=== PATIENT | female | born 1985 | race Caucasian/White ===

== ENCOUNTER → 2017-05-22 | Outpatient (CLI) | payer BC, OTHER ==
[~2017-05-22] MED LIST: (None)20 M1 PO; ALBU8HFA2 INH; ALBU90OI INH; ALBUIS INH; AMOX500 PO; BENZ100A PO; BIRTH CONTROL PILLS; CEPH500 PO; CIPR500 PO; DIPH50 PO; ERYT250 PO; ETHINYL ESTRADIOL; FISH1000 PO; FLUT.05NI; HYDACE5 PO; HYDGUAL120 PO; MULVITMINE PO; MULVITSO PO; Multivitamin1 EAC1 PO; NORGESTIMATE; OXYACE5T PO; PHENA100 PO; PHENA200 PO; PRED20 PO; PSEU30 PO; Pepcid40 MG PO; RXALBOI INH; SUCR1 PO; SULTRIDS PO; [UNRECOGNIZED DRUG - OTHER]
== END | disposition home or self-care (01) ==
LOC: LAB SHORT 13:30 → PLD 13:30
DX: D22.61 Melanocytic nevi of right upper limb, including shoulder (principal)
CPT/HCPCS: 88305

== ENCOUNTER → 2017-11-12 | Outpatient (CLI) | payer BC, OTHER | LOC: LAB 18:00 → LAB SHORT 18:00 | DX: N39.0 Urinary tract infection, site not specified (principal) | CPT/HCPCS: 87086 ==

== ENCOUNTER → 2017-11-14 | Outpatient (CLI) | payer BC, OTHER ==
[2017-11-15 09:18] LABS: Candida species (DNA Probe) Negative (NEGATIVE); G. vaginalis (DNA Probe) Negative (NEGATIVE); T. vaginalis (DNA Probe) Negative (NEGATIVE)
== END ==
LOC: LAB 15:42 → LAB SHORT 15:42
PROVIDERS: Obstetrics & Gynecology
DX: N89.8 Other specified noninflammatory disorders of vagina (principal)
CPT/HCPCS: 87070; 87077; 87186; 87205; 87480; 87510; 87660

== ENCOUNTER 2017-12-14 12:51 | Emergency (ER) | payer BC, OTHER ==
[~2017-12-14] VITALS: Ht 170.2 cm; Wt 66.7 kg
[2017-12-14 13:51] LABS: BASOPHILS ABSOLUTE AUTO 0.03 K/mm3 (0.00-0.23); BASOPHILS PERCENT AUTO 1 % (0-2); EOSINOPHILS ABSOLUTE AUTO 0.07 K/mm3 (0.00-0.68); EOSINOPHILS PERCENT AUTO 1 % (0-6); Hematocrit 38.5 % (33.0-51.0); Hemoglobin 12.3 g/dL (11.5-16.0); IMMATURE GRAN ABSOLUTE AUTO 0.01 K/mm3 (0.00-0.10); IMMATURE GRAN PERCENT AUTO 0 % (0-1); LYMPHOCYTES PERCENT AUTO 30 % (21-46); MONOCYTES ABSOLUTE AUTO 0.57 K/mm3 (0.16-1.47); MONOCYTES PERCENT AUTO 10 % (4-13); Mean Corpuscular HGB 30.2 pg (26.0-34.0); Mean Corpuscular HGB Conc 31.9 g/dL (31.5-36.5); Mean Corpuscular Volume 95 fL (80-100); NEUTROPHILS ABSOLUTE AUTO 3.35 K/mm3 (1.96-9.15); NEUTROPHILS PERCENT AUTO 59 % (41-73); Platelet Count 223 K/mm3 (150-400); RDW Coefficient Variation 12.3 % (11.7-14.2); RDW Standard Deviation 42.5 fL (35.1-46.3); Red Blood Cell Count 4.07 M/mm3 (3.80-5.20); White Blood Cell Count 5.73 K/mm3 (4.00-11.30)
[2017-12-14 13:57] LABS: Bilirubin, Urine Neg (Neg); Blood, Urine Neg (Neg); Glucose Qualitative, Urine Neg (Neg); Ketones, Urine Neg (Neg); Leukocyte Esterase, Urine Neg (Neg); Nitrite, Urine Neg (Neg); Protein, Urine Neg (Neg); Urobilinogen, Urine NORM (Normal)
[2017-12-14 14:03] LABS: Alanine Aminotransfer (ALT/SGP 65 U/L (12-78); Albumin, Blood 4.1 g/dL (3.4-5.0); Albumin/Globulin Ratio 1.2 (0.8-1.8); Alk Phos 43 U/L (50-136); Anion Gap 10 mmol/L (6-16); Aspartate Aminotrans (AST/SGOT 38 U/L (12-37); Bilirubin, Total 0.3 mg/dL (0.1-1.0); Blood Urea Nitrogen 19 mg/dL (8-24); CO2, Blood 23 mmol/L (21-32); Calcium, Blood 8.6 mg/dL (8.5-10.1); Chloride, Blood 106 mmol/L (98-108); Creatinine, Blood 0.86 mg/dL (0.40-1.00); Globulin, Blood 3.5 g/dL (2.2-4.0); Glomerular Filtration Rate >60 (60-); Glucose, Blood 85 mg/dL (70-99); Potassium, Blood 3.9 mmol/L (3.5-5.5); Sodium, Blood 139 mmol/L (136-145); Total Protein, Blood 7.6 g/dL (6.4-8.2)
[2017-12-14 14:15] LABS: Appearance, Urine Clear (Clear); Color, Urine Yellow (P-Yellow)
[2017-12-14] MEDS ORDERED: CEPH500 PO (14:45)
== END 2017-12-14 17:05 | disposition home or self-care (01) ==
LOC: ER 12:51
PROVIDERS: Emergency Medicine
DX: R30.0 Dysuria (principal); Z88.0 Allergy status to penicillin; Z88.5 Allergy status to narcotic agent; Z88.2 Allergy status to sulfonamides; Z88.1 Allergy status to other antibiotic agents; Z87.891 Personal history of nicotine dependence
CPT/HCPCS: 36415; 76770; 80053; 81003; 81025; 83690; 85025; 99284-25

== ENCOUNTER → 2018-08-10 | Outpatient (CLI) | payer BC, OTHER | END | disposition home or self-care (01) | LOC: LAB 10:27 → LAB SHORT 10:27 | DX: J02.9 Acute pharyngitis, unspecified (principal) | CPT/HCPCS: 87081 ==

== ENCOUNTER → 2019-01-28 | Outpatient (CLI) | payer BC ==
[2019-01-30 16:06] LABS: HPV 16 Negative (Negative); HPV 18 Negative (Negative); HPV OTHER HR TYPES Negative (Negative)
== END | disposition home or self-care (01) ==
LOC: LAB SHORT 17:24 → LAB 17:24
PROVIDERS: Nurse Practitioner Women's Health
DX: Z12.4 Encounter for screening for malignant neoplasm of cervix (principal); Z91.89 Other specified personal risk factors, not elsewhere classified
CPT/HCPCS: 87624; G0123

== ENCOUNTER → 2021-03-21 | Outpatient (CLI) | payer BC ==
[~2021-03-21] MED LIST changes: +Xylocaine5 M1 EXT
== END | disposition home or self-care (01) ==
LOC: LAB SHORT 07:53
DX: D22.72 Melanocytic nevi of left lower limb, including hip (principal)
CPT/HCPCS: 88305

== ENCOUNTER → 2021-03-22 | Outpatient (CLI) | payer BC ==
[~2021-03-22] MED LIST changes: -Xylocaine5 M1 EXT
[2021-03-22 13:38] LABS: BASOPHILS ABSOLUTE AUTO 0.03 K/mm3 (0.00-0.23); BASOPHILS PERCENT AUTO 1 % (0-2); EOSINOPHILS ABSOLUTE AUTO 0.02 K/mm3 (0.00-0.68); EOSINOPHILS PERCENT AUTO 1 % (0-6); Hematocrit 40.7 % (33.0-51.0); Hemoglobin 12.9 g/dL (11.5-16.0); IMMATURE GRAN ABSOLUTE AUTO 0.01 K/mm3 (0.00-0.10); IMMATURE GRAN PERCENT AUTO 0 % (0-1); LYMPHOCYTES ABSOLUTE AUTO 0.87 K/mm3 (0.84-5.20); LYMPHOCYTES PERCENT AUTO 20 % (21-46); MONOCYTES ABSOLUTE AUTO 0.84 K/mm3 (0.16-1.47); MONOCYTES PERCENT AUTO 20 % (4-13); Mean Corpuscular HGB 29.5 pg (26.0-34.0); Mean Corpuscular HGB Conc 31.7 g/dL (31.5-36.5); Mean Corpuscular Volume 93 fL (80-100); Mean Platelet Volume 10.6 fL (9.1-12.4); NEUTROPHILS ABSOLUTE AUTO 2.52 K/mm3 (1.96-9.15); NEUTROPHILS PERCENT AUTO 59 % (41-73); Platelet Count 216 K/mm3 (150-400); RDW Coefficient Variation 14.3 % (11.7-14.2); RDW Standard Deviation 49.4 fL (35.1-46.3); Red Blood Cell Count 4.37 M/mm3 (3.80-5.20); White Blood Cell Count 4.29 K/mm3 (4.00-11.30)
[2021-03-22 14:04] LABS: Alanine Aminotransfer (ALT/SGP 70 U/L (12-78); Albumin, Blood 3.9 g/dL (3.4-5.0); Albumin/Globulin Ratio 1.2 (0.8-1.8); Alk Phos 54 U/L (50-136); Anion Gap 8 mmol/L (6-16); Aspartate Aminotrans (AST/SGOT 43 U/L (12-37); Bilirubin, Total 0.3 mg/dL (0.1-1.0); Blood Urea Nitrogen 12 mg/dL (8-24); CO2, Blood 21 mmol/L (21-32); Calcium, Blood 8.9 mg/dL (8.5-10.1); Chloride, Blood 110 mmol/L (98-108); Globulin, Blood 3.3 g/dL (2.2-4.0); Glomerular Filtration Rate >60 (60-); Glucose, Blood 81 mg/dL (70-99); Sodium, Blood 139 mmol/L (136-145); Thyroid Stimulating Hormone 0.014 uIU/mL (0.360-4.800); Total Protein, Blood 7.2 g/dL (6.4-8.2)
== END ==
LOC: LAB SHORT 12:55
PROVIDERS: Nurse Practitioner Family
DX: R53.83 Other fatigue (principal)
CPT/HCPCS: 80053; 84443; 85025

== ENCOUNTER → 2021-03-23 | Outpatient (CLI) | payer BC ==
[~2021-03-23] MED LIST changes: +Xylocaine5 M1 EXT
[2021-03-27 23:09] LABS: HSV-1 DNA Positive (Negative); HSV-2 DNA Negative (Negative)
== END | disposition home or self-care (01) ==
LOC: LAB SHORT 13:01
PROVIDERS: Family Medicine
DX: K13.79 Other lesions of oral mucosa (principal)
CPT/HCPCS: 87081; 87529

== ENCOUNTER → 2021-10-05 | Outpatient (CLI) | payer OTHER | END | disposition home or self-care (01) | LOC: LAB SHORT 11:02 → PLD 11:02 | DX: D22.62 Melanocytic nevi of left upper limb, including shoulder (principal) | CPT/HCPCS: 88305 ==

== ENCOUNTER 2022-07-06 08:21 | Day surgery (SDC) | payer OTHER ==
[2022-07-03 10:16] LABS: BASOPHILS ABSOLUTE AUTO 0.05 K/mm3 (0.00-0.23); BASOPHILS PERCENT AUTO 1 % (0-2); EOSINOPHILS ABSOLUTE AUTO 0.13 K/mm3 (0.00-0.68); EOSINOPHILS PERCENT AUTO 2 % (0-6); Hematocrit 43.4 % (33.0-51.0); IMMATURE GRAN ABSOLUTE AUTO 0.02 K/mm3 (0.00-0.10); IMMATURE GRAN PERCENT AUTO 0 % (0-1); LYMPHOCYTES ABSOLUTE AUTO 1.57 K/mm3 (0.84-5.20); LYMPHOCYTES PERCENT AUTO 29 % (21-46); MONOCYTES ABSOLUTE AUTO 0.52 K/mm3 (0.16-1.47); MONOCYTES PERCENT AUTO 10 % (4-13); Mean Corpuscular HGB Conc 32.3 g/dL (31.5-36.5); Mean Corpuscular Volume 93 fL (80-100); Mean Platelet Volume 10.3 fL (9.1-12.4); NEUTROPHILS ABSOLUTE AUTO 3.18 K/mm3 (1.96-9.15); NEUTROPHILS PERCENT AUTO 58 % (41-73); Platelet Count 209 K/mm3 (150-400); RDW Coefficient Variation 12.6 % (11.7-14.2); RDW Standard Deviation 43.1 fL (35.1-46.3); Red Blood Cell Count 4.66 M/mm3 (3.80-5.20); White Blood Cell Count 5.47 K/mm3 (4.00-11.30)
[2022-07-06] VITALS (19 sets, daily range): BP systolic 88–115; BP diastolic 51–73
[~2022-07-06] VITALS: Ht 172.7 cm; Wt 69.6 kg
--- NOTE | 2022-07-06 09:04 | NUR ---
Ambulatory in Day Surgery. History, Chart, Medications and Allergies reviewed before start of procedure. Lungs clear T/O to Auscultation. Patient confirms NPO status and agrees with scheduled surgery. Pre-Op teaching done. Pt verbalizes understanding. PT BELONGINGS PLACED UNDERNEATH GURNEY FOR SAFEKEEPING.
--- NOTE | 2022-07-06 14:30 | NUR ---
ASSUMPTION OF CARE PT ARRIVED TO UNIT VIA BED ESCORTED BY MANAGER GARAGE. THE PT IS RESTING PEACEFULLY AND ANSWERS QUESTIONS APPROPRIATELY. VSS, O2 100% ON RA, BP 109/68. LR HUNG TO GRAVITY. BALBUENA CATHETER IN PLACE DRAINING CLEAR/YELLOW URINE TO GRAVITY. LAP SITES ON ABDOMEN X4 DRESSED WITH DERMABOND, C/D/I. PT'S SIGNIFICANT OTHER IS AT THE BEDSIDE. CALL LIGHT IN REACH, WILL CONTINUE TO MONITOR.
--- NOTE | 2022-07-06 18:17 | NUR ---
THIS RN UNDID "EXTENDED DWELL MANAGEMENT" FROM BIOLOGICAL SCIENCE AIDE SHARON MOORE D/T DOCUMENTATION BEING ON WRONG PATIENT.
--- NOTE | 2022-07-06 18:18 | NUR ---
SHIFT SUMMARY PT IS POD 0 LAPROSCOPIC HYSTERECTOMY. SHE HAS 4 LAP SITES ON HER ABDOMEN, DRESSED WITH DERMABOND, C/D/I. PT A/O X4. NO ACUTE CHANGES SINCE ARRIVAL TO UNIT. VSS, BLOOD PRESSURES HAVE BEEN SOFT FROM PRE-OP TO CURRENT. RANGING FROM 90-110 SYSTOLIC. 02 100% ON RA. PT IS TOLERATING PO INTAKE. PAIN IS BEING MANAGED PER EMAR. BALBUENA CATHETER DRAINING CLEAR/YELLOW URINE TO GRAVITY. IV IN THE RAC, LR RUNNING AT 125/HR. PT HAS BEEN ORIENTED TO ROOM AND CALL LIGHT, CALLS APPROPRIATELY. WILL REPORT TO CLINICAL RESEARCH ADMINISTRATOR RN.
--- NOTE | 2022-07-07 02:52 | NUR ---
PT REPORTED FEELING URGE TO URINATE. BALBUENA TUBE ADJUSTED AND MOVED TO ENSURE NO KINKS. LIGHT YELLOW URINE NOW DRAINING.
[2022-07-07 04:33] VITALS: BP 102/75
[2022-07-07 04:40] LABS: BASOPHILS ABSOLUTE AUTO 0.02 K/mm3 (0.00-0.23); BASOPHILS PERCENT AUTO 0 % (0-2); EOSINOPHILS ABSOLUTE AUTO 0.01 K/mm3 (0.00-0.68); EOSINOPHILS PERCENT AUTO 0 % (0-6); Hematocrit 34.7 % (33.0-51.0); Hemoglobin 11.4 g/dL (11.5-16.0); IMMATURE GRAN ABSOLUTE AUTO 0.03 K/mm3 (0.00-0.10); IMMATURE GRAN PERCENT AUTO 0 % (0-1); LYMPHOCYTES ABSOLUTE AUTO 1.46 K/mm3 (0.84-5.20); LYMPHOCYTES PERCENT AUTO 15 % (21-46); MONOCYTES ABSOLUTE AUTO 1.15 K/mm3 (0.16-1.47); MONOCYTES PERCENT AUTO 12 % (4-13); Mean Corpuscular HGB 30.2 pg (26.0-34.0); Mean Corpuscular HGB Conc 32.9 g/dL (31.5-36.5); Mean Corpuscular Volume 92 fL (80-100); Mean Platelet Volume 10.5 fL (9.1-12.4); NEUTROPHILS ABSOLUTE AUTO 7.15 K/mm3 (1.96-9.15); NEUTROPHILS PERCENT AUTO 73 % (41-73); Platelet Count 179 K/mm3 (150-400); RDW Coefficient Variation 12.7 % (11.7-14.2); RDW Standard Deviation 42.4 fL (35.1-46.3); Red Blood Cell Count 3.78 M/mm3 (3.80-5.20); White Blood Cell Count 9.82 K/mm3 (4.00-11.30)
--- NOTE | 2022-07-07 05:04 | NUR ---
SHIFT SUMMARY POD1 FOR TOTAL LAP HYSTER, X4 LAP SITES ON ABD, C/D/I W/ DERMABOND. NO DRAINAGE, REDNESS, SWELLING. VSS, MEDICATED W/ TORADOL X1 AND ADVIL X1. BALBUENA REMOVED AT 0450, LIGHT YELLOW URINE. NO DISCHARGE/ BLOOD TO PAD. IV SL @0500, PT TOLERATING PO INTAKE, DENIES N/V. PT REPORTS GAS PAINS. PT HAS NOT BEEN OOB POST OP, WILL CALL FOR ASSISTANCE WHEN URGE TO VOID AND WILL AMB AT THAT TIME. PT SLEPT WELL T/O NIGHT, NO DISTRESS, CALL LIGHT W/IN REACH, S/O IN ROOM W/ PT. PLANS FOR DC TODAY.
--- NOTE | 2022-07-07 05:46 | NUR ---
PT UP TO BATHROOM, 375ML RED URINE. AMBULATED IN HALLWAY TO WINDOW. TOLERATED WELL.
[2022-07-07 06:57] VITALS: BP 115/73
--- NOTE | 2022-07-07 07:40 | NUR ---
PATIENT CONSENT STATEMENT. PT CONSENTED THIS 2ND YEAR [facility] [place] RN STUDENT TO PARTICIPATE IN HER CARE TODAY.
[2022-07-07] MEDS ORDERED: IBUP400 PO (12:15)
[2022-07-07] MEDS ORDERED: Percocet 5-3251 EACH PO (12:16)
[2022-07-07] MEDS ORDERED: SIME80CH PO (12:17)
[2022-07-07] MEDS ORDERED: PROMETHAZINE12.5 M6 PO (12:17)
[2022-07-07 12:48] VITALS: BP 112/77
--- NOTE | 2022-07-07 13:01 | NUR ---
PATIENT DISCHARGED AND LEFT THE UNIT AT 1250. PT WALKED APPROXIMATELY 400 FEET AND THEN WHEELED TO PERSONAL VEHICLE VIA W/C. PT WAS ACCOMPANIED BY HER AND DAUGHTER. PT DENIED ANY FURTHER QUESTIONS.
== END 2022-07-07 12:59 | disposition home or self-care (01) ==
LOC: ORSCMMR 08:21 → ORD 10:00 → ORSCMMR 10:15 → SURS 14:31 → ORSCMMR 14:31 → SURS 07-07 12:59
PROVIDERS: Obstetrics & Gynecology
PROC: 0U5F4ZZ Destruction of Cul-de-sac, Percutaneous Endoscopic Approach (ICD-10-PCS; principal; 2022-07-06 10:15)
PROC: 0UT1FZZ Resection of Left Ovary, Via Natural or Artificial Opening With Percutaneous Endoscopic Assistance (ICD-10-PCS; principal; 2022-07-06 10:15)
PROC: 0UT9FZZ Resection of Uterus, Via Natural or Artificial Opening With Percutaneous Endoscopic Assistance (ICD-10-PCS; principal; 2022-07-06 10:15)
PROC: 0UT7FZZ Resection of Bilateral Fallopian Tubes, Via Natural or Artificial Opening With Percutaneous Endoscopic Assistance (ICD-10-PCS; principal; 2022-07-06 10:15)
PROC: 8E0W4CZ Robotic Assisted Procedure of Trunk Region, Percutaneous Endoscopic Approach (ICD-10-PCS; principal; 2022-07-06 10:15)
DX: N92.1 Excessive and frequent menstruation with irregular cycle (principal); N94.6 Dysmenorrhea, unspecified; N94.10 Unspecified dyspareunia; R10.2 Pelvic and perineal pain; D25.9 Leiomyoma of uterus, unspecified; N80.399 Endometriosis of the pelvic peritoneum, other specified sites, unspecified depth; N83.292 Other ovarian cyst, left side; Z87.891 Personal history of nicotine dependence
CPT/HCPCS: 58571; 58662; S2900; 36415; 84702; 85025; 86850; 86900; 86901; 88305; 88307; 94760; A9270; J0690; J1100; J1790; J1885; J2250; J2270; J2405; J2704; J3010; J7120

== ENCOUNTER → 2024-10-08 | Outpatient (CLI) | payer OTHER ==
[~2024-10-08] MED LIST changes: +IBUP400 PO; +PROMETHAZINE12.5 M6 PO; +Percocet 5-3251 EACH PO; +SIME80CH PO
== END | disposition home or self-care (01) ==
LOC: LAB 17:43 → LAB SHORT 17:43
DX: R30.0 Dysuria (principal)
CPT/HCPCS: 87086

== ENCOUNTER 2024-10-14 04:07 | Emergency (ER) | payer OTHER ==
[~2024-10-14] VITALS: Ht 170.2 cm; Wt 68.0 kg
[~2024-10-14 04:07] MED LIST changes: -ESTRADIOL TD; -KETO10 PO
[2024-10-14] MEDS ORDERED: ESTRADIOL TD (04:52)
[2024-10-14 05:04] LABS: Source, Urine Clean Catch
[2024-10-14 05:12] LABS: Bilirubin, Urine Neg (Neg); Glucose Qualitative, Urine Neg (Neg); Ketones, Urine Neg (Neg); Leukocyte Esterase, Urine Neg (Neg); Protein, Urine Neg (Neg); Specific Gravity, Urine 1.010 (1.003-1.022); Urobilinogen, Urine NORM (Normal)
[2024-10-14 05:25] LABS: Color, Urine Yellow (P-Yellow)
[2024-10-14 07:08] LABS: BASOPHILS ABSOLUTE AUTO 0.05 K/mm3 (0.00-0.23); BASOPHILS PERCENT AUTO 1 % (0-2); EOSINOPHILS ABSOLUTE AUTO 0.10 K/mm3 (0.00-0.68); EOSINOPHILS PERCENT AUTO 2 % (0-6); Hematocrit 38.5 % (33.0-51.0); Hemoglobin 13.4 g/dL (11.5-16.0); IMMATURE GRAN ABSOLUTE AUTO 0.05 K/mm3 (0.00-0.10); IMMATURE GRAN PERCENT AUTO 1 % (0-1); LYMPHOCYTES ABSOLUTE AUTO 1.85 K/mm3 (0.84-5.20); LYMPHOCYTES PERCENT AUTO 40 % (21-46); MONOCYTES ABSOLUTE AUTO 0.38 K/mm3 (0.16-1.47); MONOCYTES PERCENT AUTO 8 % (4-13); Mean Corpuscular HGB Conc 34.8 g/dL (31.5-36.5); Mean Corpuscular Volume 91 fL (80-100); NEUTROPHILS ABSOLUTE AUTO 2.19 K/mm3 (1.96-9.15); NEUTROPHILS PERCENT AUTO 47 % (41-73); NRBC ABSOLUTE 0.00 K/mm3 (0.00-0.02); NRBC Auto 0.0 /100 WBC (0.0-0.2); RDW Coefficient Variation 12.8 % (11.7-14.2); RDW Standard Deviation 42.5 fL (35.1-46.3)
[2024-10-14 07:16] LABS: Alanine Aminotransfer (ALT/SGP 55.0 U/L (12-78); Albumin, Blood 3.8 g/dL (3.4-5.0); Albumin/Globulin Ratio 1.1 (0.8-1.8); Anion Gap 8.0 mmol/L (3-11); Aspartate Aminotrans (AST/SGOT 30.0 U/L (12-37); Bilirubin, Total 0.4 mg/dL (0.1-1.0); Blood Urea Nitrogen 18.0 mg/dL (8-24); CO2, Blood 23.0 mmol/L (21-32); Calcium, Blood 8.7 mg/dL (8.5-10.1); Chloride, Blood 110.0 mmol/L (98-108); Creatinine, Blood 0.77 mg/dL (0.40-1.00); Globulin, Blood 3.4 g/dL (2.2-4.0); Glucose, Blood 86.0 mg/dL (70-99); Potassium, Blood 3.7 mmol/L (3.5-5.5); Sodium, Blood 137.0 mmol/L (136-145); Total Protein, Blood 7.2 g/dL (6.4-8.2)
[2024-10-14] MEDS ORDERED: PHENA200 PO (08:32)
[2024-10-14] MEDS ORDERED: KETO10 PO (08:32)
[2024-10-14 08:47] VITALS: BP 105/74
[2024-10-14 10:19] LABS: Chlamydia Trachomatis Urine NOT DETECTED (NOT DETECT); Neisseria Gonorrhoea Urine NOT DETECTED (NOT DETECT)
== END 2024-10-14 08:48 | disposition home or self-care (01) ==
LOC: ER 04:07
PROVIDERS: Emergency Medicine
DX: R30.0 Dysuria (principal); N94.10 Unspecified dyspareunia; N94.6 Dysmenorrhea, unspecified; R10.2 Pelvic and perineal pain
CPT/HCPCS: 80053; 81003; 83605; 85025; 87491; 87591; 99283; A9270

== ENCOUNTER → 2024-10-14 | Outpatient (CLI) | payer OTHER ==
[~2024-10-14] MED LIST changes: +ESTRADIOL TD; +KETO10 PO
== END | disposition home or self-care (01) ==
LOC: LAB 13:37 → LAB SHORT 13:37
DX: N89.8 Other specified noninflammatory disorders of vagina (principal)
CPT/HCPCS: 87070; 87205

== ENCOUNTER → 2024-12-22 | Outpatient (CLI) | payer OTHER ==
[~2024-12-22] MED LIST changes: +ESTRADIOL TD; +KETO10 PO
== END ==
LOC: LAB SHORT 09:30 → LAB 09:30
DX: J02.9 Acute pharyngitis, unspecified (principal)
CPT/HCPCS: 87081